=== PATIENT | male | born 1935 | race Caucasian/White ===

== ENCOUNTER → 2020-09-30 | Outpatient (CLI) | payer MEDICARE, OTHER | LOC: KOH-I 13:34 | DX: M20.40 Other hammer toe(s) (acquired), unspecified foot (principal) | CPT/HCPCS: 73630 ==

== ENCOUNTER → 2021-08-11 | Outpatient (CLI) | payer MEDICARE, OTHER | LOC: KOH-I 15:33 → EDSEX 15:33 | DX: M79.671 Pain in right foot (principal) | CPT/HCPCS: 73630 ==